=== PATIENT | female | born 1985 | race African-American/Black ===

== ENCOUNTER 2017-01-11 23:51 | Emergency (ER) | payer MEDICAID ==
[~2017-01-11] VITALS: Ht 160 cm; Wt 79.4 kg
[2017-01-12 00:04] VITALS: BP 129/88; PULSE 85; RESP 16; TEMP 99.2; O2SAT 99
--- NOTE | 2017-01-12 02:35 | PD ---
HPI Chief Complaint: ENT Complaint Time Seen by Provider: 02:34 Travel History International Travel<30 days: No Contact w/Intl Traveler<30days: No Traveled to known affect area: No History of Present Illness HPI 31-year-old female presents to the emergency department by private transportation for complaint of sore throat left ear pain subjective fever and sinus congestion old symptoms nonproductive cough and possible exposure to scabies from coworker. Patient states that she is concerned about having strep throat. Patient states the pain is moderate to severe. Patient unable to identify exacerbating or alleviating factors although does note swelling increases pain. Patient also concerned about pruritus in the intertriginous areas due to recent exposure to coworker with diagnosis of scabies that has continued to work. No other coworkers reportedly was similar symptoms. Family members without similar symptoms. Patient denies other concerns or complaints. PFSH Past Medical History Narrative Medical Asthma cystic fibrosis kidney stones endometriosis kidney stone removal C- section tobacco use alcohol use nursing notes reviewed Asthma: Yes Cancer: No Cystic Fibrosis: Yes Diabetes: No Diminished Hearing: No Glaucoma: No Hepatitis: No Hiatal Hernia: No Hypertension: Yes Kidney Stones: Yes Immunizations Current: Yes Thyroid Disease: No ?: Not LMP: 2 weeks ago : 3 Para: 1 Miscarriage: 0 : 2 Past Surgical History Abdominal Surgery: Yes (LYSIS OF ADHEASIONS, ENDOMETRIOSIS) Cardiac Surgery: No Section: Yes (X1 IN 2006) Ear Surgery: No Endocrine Surgery: No Eye Surgery: No Genitourinary Surgery: Yes (C SECTION/KIDNEY STONE REMOVAL) Oral Surgery: No Thoracic Surgery: No Other Surgery: Yes Social History Alcohol Use: Yes (OCCASIONAL) Tobacco Use: Yes (4 CIGA/DAY) Substance Use: No Allergies-Medications (Allergen,Severity, Reaction): Coded Allergies: Penicillin (Verified Allergy, Severe, THROAT SWELLS UP, 01/12/17) Reported Meds & Prescriptions Reported Meds & Active Scripts Active Elimite Topical (Permethrin) 5% Cream 1 Applic TOPICAL ONCE Zithromax Z-Demian (Azithromycin) 250 Mg Dspk 250 Mg PO DIRECTED 500 MG (2 tabs) day 1, then 1 tab days 2-5. Review of Systems Except as stated in HPI: all other systems reviewed are Neg General / Constitutional: Positive: Fever, Chills HENT: Positive: Sore Throat, Congestion Cardiovascular: No: Chest Pain or Discomfort Respiratory: Positive: Cough Gastrointestinal: No: Nausea, Abdominal Pain Genitourinary: No: Dysuria Musculoskeletal: No: Myalgias, Arthralgias Skin: Positive Rash, No Lumps Neurologic: No: Weakness Psychiatric: Positive: Anxiety Endocrine: No: Heat Intolerance Hematologic/Lymphatic: No: Easy Bruising Physical Exam Narrative GENERAL: Well-developed well-nourished female in no acute distress no respiratory distress no stridor or hoarseness. SKIN: Warm and dry. Patient with areas of excoriation to the intertriginous areas of the hands rest and groin HEAD: Normocephalic. EYES: No scleral icterus. No injection or drainage. ENT: Mucous members moist airway is patent posterior pharyngeal erythema scant edema no exudative change bilateral tympanic membranes no redness dullness or loss of landmarks mild sinus tenderness to percussion NECK: Supple, trachea midline. No JVD or lymphadenopathy. No meningismus no nuchal rigidity CARDIOVASCULAR: Regular rate and rhythm without murmurs, gallops, or rubs. RESPIRATORY: Breath sounds equal bilaterally. No accessory muscle use. GASTROINTESTINAL: Abdomen soft, non-tender, nondistended. MUSCULOSKELETAL: No cyanosis, or edema. BACK: Nontender without obvious deformity. No CVA tenderness. Data Data Last Documented VS Vital Signs Date Time Temp Pulse Resp B/P Pulse Ox O2 Delivery O2 Flow Rate FiO2 01/12/17 00:04 99.2 85 16 129/88 99 Room Air Orders Group A Rapid Strep Screen (01/12/17 01:29) Strep Culture (Group A) (01/12/17 01:50) MDM Medical Decision Making Medical Screen Exam Complete: Yes Emergency Medical Condition: Yes Medical Record Reviewed: Yes Interpretation(s) Rapid strep antigen: Negative Differential Diagnosis Pharyngitis sinusitis viral syndrome contact dermatitis scabies dermatitis Narrative Course Rapid strep antigen negative Patient stable for outpatient management and follow-up with primary care provider patient provided prescription for Elimite and for azithromycin Diagnosis Primary Impression: Pharyngitis Qualified Code: J02.9 - Pharyngitis, unspecified etiology Additional Impression: Scabies exposure Referrals: Primary Care Physician call for appointment Patient Instructions: General Instructions Departure Forms: Tests/Procedures, Work Release Special Instructions: no work x 2 days Additional Instructions: Complete course of antibiotic as prescribed Complete course of medication for exposure to scabies as provided Wash all linens and clothing No work 2 days Use warm saltwater gargles, lozenges, Chloraseptic spray for throat pain Take acetaminophen and/or ibuprofen per package instructions as needed for fever 100.4F or greater or for minor discomfort or pain associated with inflammation Return to the emergency for free concerns or change in condition Follow-up with your primary care provider Med/Other Pt SpecificInfo: Prescription(s) given Scripts Permethrin Topical (Elimite Topical)5% Cream1 Applic TOPICAL ONCE #1 TUBE Ref 0 Prov:Vanessa Snider MD 01/12/17 Azithromycin (Zithromax Z-Demian)250 Mg [id number] Mg PO DIRECTED #1 DSPK Ref 0 500 MG (2 tabs) day 1, then 1 tab days 2-5. Prov:Vanessa Snider MD 01/12/17 Disposition: 01 DISCHARGE HOME Condition: Stable Vanessa Snider MD Jan 12, 2017 02:35
[2017-01-12] MEDS ORDERED: ZITHTAB PO (02:37)
[2017-01-12] MEDS ORDERED: PERM5CRE11 TOPICAL (02:37)
== END 2017-01-12 02:53 | disposition home or self-care (01) ==
LOC: PHED 23:51 → PHEFT 01-12 02:53
DX: J02.9 Acute pharyngitis, unspecified (principal); Z20.7 Contact with and (suspected) exposure to pediculosis, acariasis and other infestations; I10 Essential (primary) hypertension; Z72.0 Tobacco use
CPT/HCPCS: 87081; 87880; 99282

== ENCOUNTER 2017-04-20 04:00 | Emergency (ER) | payer MEDICAID ==
[~2017-04-20] VITALS: Ht 160 cm; Wt 80.4 kg
[~2017-04-20 04:00] MED LIST: PERM5CRE11 TOPICAL; ZITHTAB PO
[2017-04-20 04:06] VITALS: BP 152/109; PULSE 72; RESP 18; TEMP 98.3; O2SAT 98
--- NOTE | 2017-04-20 04:07 | PD ---
HPI Chief Complaint: SORE THROAT Time Seen by Provider: 04:04 Travel History International Travel<30 days: No Contact w/Intl Traveler<30days: No Traveled to known affect area: No History of Present Illness HPI C/O SORE THROAT FOR 3 DAYS WORSENING INSTEAD OF IMPROVING WITH SALT WATER GARGLES, STATES ALLERGY TO PCN, STATES IN ADDITION TO SORE THROAT HAS BODY ACHES 6/10 PFSH Past Medical History Asthma: Yes Cancer: No Cystic Fibrosis: Yes Diabetes: No Diminished Hearing: No Glaucoma: No Hepatitis: No Hiatal Hernia: No Hypertension: Yes Kidney Stones: Yes Immunizations Current: Yes Thyroid Disease: No : 3 Para: 1 Miscarriage: 0 : 2 Past Surgical History Abdominal Surgery: Yes (LYSIS OF ADHEASIONS, ENDOMETRIOSIS) Cardiac Surgery: No Section: Yes (X1 IN 2006) Ear Surgery: No Endocrine Surgery: No Eye Surgery: No Genitourinary Surgery: Yes (C SECTION/KIDNEY STONE REMOVAL) Oral Surgery: No Thoracic Surgery: No Other Surgery: Yes Social History Alcohol Use: Yes (OCCASIONAL) Tobacco Use: Yes (4 CIGA/DAY) Substance Use: No Allergies-Medications (Allergen,Severity, Reaction): Coded Allergies: Penicillin (Verified Allergy, Severe, THROAT SWELLS UP, 04/20/17) Reported Meds & Prescriptions Reported Meds & Active Scripts Active Lidocaine Viscous Liq 2 % Liqd 10 Ml SWISH-SPIT DIRECTED PRN Ultram (Tramadol HCl) 50 Mg Tab 50 Mg PO Q4H PRN Bactrim DS (Sulfamethoxazole-Trimethoprim) 800-160 Mg Tab 1 Tab PO BID Review of Systems Except as stated in HPI: all other systems reviewed are Neg HENT: Positive: Sore Throat Physical Exam Narrative GENERAL: SKIN: Warm and dry. HEAD: Atraumatic. Normocephalic. EYES: Pupils equal and round. No scleral icterus. No injection or drainage. ENT: No nasal bleeding or discharge. Mucous membranes pink and moist. ERYTHEMATOUS OROPHARYNX, NO UVULAR EDEMA, EXUDATE, CERVICAL LAD NOTED NECK: Trachea midline. No JVD. CARDIOVASCULAR: Regular rate and rhythm. RESPIRATORY: No accessory muscle use. Clear to auscultation. Breath sounds equal bilaterally. GASTROINTESTINAL: Abdomen soft, non-tender, nondistended. Hepatic and splenic margins not palpable. MUSCULOSKELETAL: Extremities without clubbing, cyanosis, or edema. No obvious deformities. NEUROLOGICAL: Awake and alert. No obvious cranial nerve deficits. Motor grossly within normal limits. Five out of 5 muscle strength in the arms and legs. Normal speech. PSYCHIATRIC: Appropriate mood and affect; insight and judgment normal. Data Data Last Documented VS Vital Signs Date Time Temp Pulse Resp B/P Pulse Ox O2 Delivery O2 Flow Rate FiO2 04/20/17 04:06 98.3 72 18 152/109 98 Orders Lidocaine 2% Viscous (Xylocaine 2% Visco (04/20/17 04:15) Ketorolac Inj (Toradol Inj) (04/20/17 04:15) Sulfamet-Trimet 800-160 Mg Liq (Bactrim (04/20/17 04:15) MDM Medical Decision Making Medical Screen Exam Complete: Yes Emergency Medical Condition: No Medical Record Reviewed: Yes Differential Diagnosis VIRAL V BACTERIAL PHARYNGITIS Narrative Course PATIENT HAS FREQUENT H/O STREP THROAT, ON PHYSICAL C/W BACTERIAL PHARYNGITIS, PATIENT WILL BE TREATED WITH PO ABX, TORADOL IM AND LIDO SWISH AND SPIT. Diagnosis Primary Impression: Pharyngitis Qualified Code: J02.9 - Pharyngitis, unspecified etiology Med/Other Pt SpecificInfo: Prescription(s) given Scripts Lidocaine Viscous Liq 2 % Liqd10 Ml SWISH-SPIT DIRECTED PRN (PAIN) #1 BOTTLE Ref 1 Prov:Abhishek Luciano MD 04/20/17 Tramadol (Ultram)50 Mg Tab50 Mg PO Q4H PRN (BREAKTHROUGH PAIN) #20 TAB Prov:Abhishek Luciano MD 04/20/17 Sulfamethoxazole-Trimethoprim (Bactrim DS)800-160 Mg Tab1 Tab PO BID #20 TAB Prov:Abhishek Luciano MD 04/20/17 Disposition: 01 DISCHARGE HOME Condition: Stable Abhishek Luciano MD Apr 20, 2017 04:07
[2017-04-20] MEDS ORDERED: KETOROLAC TROMETHAMINE 60 MG/2 ML (IM) VIAL IM ONE (04:15)
[2017-04-20] MEDS ORDERED: SULFAMETHOXAZOLE-TRIMETHOPRIM 800-160 MG/20 ML UDC PO ONE (04:15)
[2017-04-20] MEDS ORDERED: LIDOCAINE VISCOUS 2% SOLN 15 ML UDC SWISH-SWAL PRN (04:15)
[2017-04-20] MEDS ORDERED: LIDO1SOL8 SWISH-SPIT (04:19)
[2017-04-20] MEDS ORDERED: BACT800T5 PO (04:19)
[2017-04-20] MEDS ORDERED: ULTR50TA5 PO (04:19)
[2017-04-20 04:20] VITALS: BP 152/109; PULSE 72; RESP 18; TEMP 98.3; O2SAT 98
[2017-04-20 04:27] VITALS: BP 152/109; PULSE 72; RESP 18; TEMP 98.3; O2SAT 98
== END 2017-04-20 04:50 | disposition home or self-care (01) ==
LOC: PHED 04:00
DX: J02.9 Acute pharyngitis, unspecified (principal); F17.210 Nicotine dependence, cigarettes, uncomplicated
CPT/HCPCS: 99284

== ENCOUNTER 2017-11-13 14:16 | Emergency (ER) | payer MEDICAID ==
[~2017-11-13] VITALS: Ht 162.6 cm; Wt 79.5 kg
[~2017-11-13 14:16] MED LIST changes: +BACT800T5 PO; +LIDO1SOL8 SWISH-SPIT; -PERM5CRE11 TOPICAL; +TRAM50 PO; -ZITHTAB PO
[2017-11-13 14:19] VITALS: BP 113/74; PULSE 83; RESP 16; TEMP 97.5; O2SAT 99
[2017-11-13 15:00] VITALS: BP 105/56; PULSE 68; RESP 16; TEMP 97.9; O2SAT 99
--- NOTE | 2017-11-13 15:50 | PD ---
HPI . Blood in stool Chief Complaint: GI Complaint Time Seen by Provider: 15:23 Travel History International Travel<30 days: No Contact w/Intl Traveler<30days: No Traveled to known affect area: No History of Present Illness HPI 32 year old female presents to ED for evaluation of blood in her stools for approximately 6 months. These episodes occur intermittently approximately every other bowel movement and she can see "clots of red blood" mixed with her stool as well as red blood on the toilet paper when she wipes. She denies melena, abdominal pain, N/V/D, changes in weight, loss of appetite, trauma, weakness, SOB and rectal pain. She has not been evaluated for these symptoms prior and reports to ED today due to pressure from her family. Menstrual cycle regular with LMP two weeks ago, she is not sexual active and not on control. Risk Factors:[None] Modifying Factors:[None] Associated sign and symptoms: Blood in stool, no abd pain, no rectal pain. PFSH Past Medical History Asthma: No Cancer: No Cardiovascular Problems: No Cystic Fibrosis: No Diabetes: No Diminished Hearing: No Glaucoma: No Hepatitis: No Hiatal Hernia: No Hypertension: Yes (GESTATIONAL) Kidney Stones: Yes Respiratory: No Immunizations Current: Yes Thyroid Disease: No Tetanus Vaccination: > 5 Years Influenza Vaccination: No ?: Not LMP: 2 WEEKS : 3 Para: 1 Miscarriage: 0 : 2 Past Surgical History Abdominal Surgery: Yes (LYSIS OF ADHESIONS, ENDOMETRIOSIS) Cardiac Surgery: No Section: Yes (X1 IN 2006) Ear Surgery: No Endocrine Surgery: No Eye Surgery: No Genitourinary Surgery: Yes (C SECTION/KIDNEY STONE REMOVAL) Neurologic Surgery: No Oral Surgery: No Thoracic Surgery: No Other Surgery: Yes Social History Alcohol Use: Yes (OCCASIONAL) Tobacco Use: Yes (4 CIGA/DAY, PT STATES TRYING TO WUIT) Substance Use: No Allergies-Medications (Allergen,Severity, Reaction): Coded Allergies: penicillin G (Verified Allergy, Severe, THROAT SWELLS UP, 11/13/17) Reported Meds & Prescriptions Reported Meds & Active Scripts Active Review of Systems Except as stated in HPI: all other systems reviewed are Neg Physical Exam Narrative GENERAL: Well appearing women in ED, no acute distress. SKIN: Warm and dry. HEAD: Atraumatic. Normocephalic. EYES: Pupils equal and round. No injection or drainage, Conjunctiva with mild pallor ENT: No nasal bleeding or discharge. Mucous membranes pink and moist. NECK: Trachea midline. No JVD. CARDIOVASCULAR: Regular rate and rhythm. RESPIRATORY: No accessory muscle use. Clear to auscultation. Breath sounds equal bilaterally. GASTROINTESTINAL: Abdomen soft, non-tender, nondistended. Hepatic and splenic margins not palpable, no palpable masses. RECTAL EXAM: No masses or tenderness, stool is reddish brown. Hemoccult positive. MUSCULOSKELETAL: Extremities without clubbing, cyanosis, or edema. No obvious deformities. NEUROLOGICAL: Awake and alert. No obvious cranial nerve deficits. Motor grossly within normal limits. Five out of 5 muscle strength in the arms and legs. Normal speech. PSYCHIATRIC: Appropriate mood and affect; insight and judgment normal. RECTAL: External with no obvious masses, no hemorrhoids no tenderness to palpation. Digital exam with no palpable masses, hard stool in rectal vault, normal sphincter tone. Brown stool Hemoccult card positive. Data Data Last Documented VS Vital Signs Date Time Temp Pulse Resp B/P (MAP) Pulse Ox O2 Delivery O2 Flow Rate FiO2 11/13/17 15:00 97.9 68 16 105/56 (72) 99 Orders Orders Complete Blood Count With Diff (11/13/17 15:36) Ed Discharge Order (11/13/17 17:14) Labs Laboratory Tests Test 11/13/17 16:40 White Blood Count 5.4 TH/MM3 Red Blood Count 4.09 MIL/MM3 Hemoglobin 11.9 GM/DL Hematocrit 36.3 % Mean Corpuscular Volume 88.6 FL Mean Corpuscular Hemoglobin 29.0 PG Mean Corpuscular Hemoglobin Concent 32.8 % Red Cell Distribution Width 12.7 % Platelet Count 366 TH/MM3 Mean Platelet Volume 7.5 FL Neutrophils (%) (Auto) 50.8 % Lymphocytes (%) (Auto) 35.4 % Monocytes (%) (Auto) 9.7 % Eosinophils (%) (Auto) 2.6 % Basophils (%) (Auto) 1.5 % Neutrophils # (Auto) 2.8 TH/MM3 Lymphocytes # (Auto) 1.9 TH/MM3 Monocytes # (Auto) 0.5 TH/MM3 Eosinophils # (Auto) 0.1 TH/MM3 Basophils # (Auto) 0.1 TH/MM3 CBC Comment DIFF FINAL Differential Comment MDM Medical Decision Making Medical Screen Exam Complete: Yes Emergency Medical Condition: Yes Medical Record Reviewed: Yes Interpretation(s) Laboratory Tests Test 11/13/17 16:40 Monocytes (%) (Auto) 9.7 % (0.0-8.0) Differential Diagnosis GI bleed versus hemorrhoids versus anal fissures Narrative Course Rectal exam did not show any obvious causes of bleeding although she is Hemoccult positive. H&H is stable vital signs are stable. Abdomen is benign. At this point, his been going on for at least 4 months and my plan would be to release her with follow-up to a GI doctor for further evaluation, possible colonoscopy. Return for any worsening in bleeding or new symptoms as needed. The plan has been discussed with her and she states understanding. [facility] Point of Care Internal Pos. & Neg. Controls: Passed Fecal Specimen Occult Blood: Positive Diagnosis Primary Impression: Blood clots in stool Referrals: [facility] Additional Instructions: Follow-up with a GI doctor. Return for any worsening in bleeding, pain, and as needed. Disposition: 01 DISCHARGE HOME Condition: Stable Ashanti Keyes MD Nov 13, 2017 15:50
[2017-11-13 17:00] VITALS: BP 110/60; PULSE 67; RESP 16; O2SAT 98
[2017-11-13 17:11] LABS: AUTOMATED NEUTROPHIL # 2.8 TH/MM3 (1.8-7.7); BASOPHIL # 0.1 TH/MM3 (0-0.2); BASOPHIL % 1.5 % (0.0-2.0); EOSINOPHIL # 0.1 TH/MM3 (0-0.4); EOSINOPHIL % 2.6 % (0.0-4.0); HEMATOCRIT 36.3 % (35.0-46.0); HEMOGLOBIN 11.9 GM/DL (11.6-15.3); LYMPH % 35.4 % (9.0-44.0); LYMPHOCYTE # 1.9 TH/MM3 (1.0-4.8); MEAN CELL VOLUME 88.6 FL (80.0-100.0); MEAN CORPUSCULAR HGB CONC 32.8 % (32.0-36.0); MEAN PLATELET VOLUME 7.5 FL (7.0-11.0); MONO % 9.7 % (0.0-8.0); MONOCYTE # 0.5 TH/MM3 (0-0.9); NEUT % 50.8 % (16.0-70.0); PLATELET COUNT 366 TH/MM3 (150-450); RED BLOOD COUNT 4.09 MIL/MM3 (4.00-5.30); RED CELL DISTRIBUTION WIDTH 12.7 % (11.6-17.2); WHITE BLOOD COUNT 5.4 TH/MM3 (4.0-11.0)
== END 2017-11-13 17:43 | disposition home or self-care (01) ==
LOC: PHED 14:16
DX: K92.1 Melena (principal); F17.210 Nicotine dependence, cigarettes, uncomplicated
CPT/HCPCS: 85025; 99283